=== PATIENT | male | born 1980 | race Two or more races ===

== ENCOUNTER → 2024-05-17 | Outpatient (CLI) | payer MEDICAID, SELFPAY ==
--- NOTE | 2024-05-17 10:30 | XR_ITS ---
Examination: Shoulder,left, 3 views Technique: Shoulder AP internal rotation, AP external rotation, Y view shoulder, 3 views Exam date and time :May 17, 2024 1043 hours INDICATIONS: Lifting injury 4 months ago with shoulder pain FINDINGS: Prominent osteopenia Moderate narrowing glenohumeral joint No shoulder fracture or dislocation Moderate osteoarthritis acromioclavicular joint IMPRESSION: No fracture Moderate narrowing glenohumeral joint
== END | disposition home or self-care (01) ==
LOC: CDIM 10:24
PROVIDERS: PCP Family Medicine; Referring Provider Family Medicine; Visit Provider Family Medicine
DX: M25.812 Other specified joint disorders, left shoulder (principal)
CPT/HCPCS: 73030